=== PATIENT | female | born 1955 | race Two or more races ===

== ENCOUNTER → 2023-02-03 10:41 | Outpatient (BNVA) | payer OTHER, SELFPAY | PROVIDERS: PCP Registered Nurse; Visit Provider Internal Medicine | DX: M54.16 Radiculopathy, lumbar region (principal); M25.562 Pain in left knee; G89.29 Other chronic pain | CPT/HCPCS: 20610; 99202; J2795; J3301 ==

== ENCOUNTER 2023-02-10 11:22 | Outpatient (REF) | payer OTHER, SELFPAY ==
--- NOTE | ~2023-02-10 | XR_ITS ---
EXAMINATION: XR KNEE AP STANDING CLINICAL INFORMATION: Osteoarthritis of the knee. COMPARISON: None available. TECHNIQUE: AP bilateral standing view of the knees was obtained. FINDINGS: No acute fracture or malalignment in this limited single view of the knees. Severe joint space narrowing with subcortical sclerosis of the medial compartment of the left knee. No significant soft tissue abnormality. XR/XR knee standing BI IMPRESSION: Severe degenerative osteoarthritis of the medial compartment of the left knee.
== END 2023-02-10 11:23 | disposition home or self-care (01) ==
LOC: HO.XRAY 11:22
PROVIDERS: PCP Registered Nurse; Visit Provider Internal Medicine
DX: M17.0 Bilateral primary osteoarthritis of knee (principal)
CPT/HCPCS: 73565

== ENCOUNTER 2023-02-12 08:22 | Outpatient (REF) | payer OTHER, SELFPAY ==
--- NOTE | ~2023-02-12 | XR_ITS ---
EXAMINATION: XR KNEE, LEFT CLINICAL INFORMATION: Pain left knee. COMPARISON: None available. TECHNIQUE: 4 views of the left knee. FINDINGS: There is loss of patellofemoral joint space with moderate periarticular spurring. Mild suprapatellar joint effusion seen. There are no loose bodies, acute fracture or dislocation. There is mild anterior knee soft tissue swelling. XR/XR knee LT 2V IMPRESSION: Degenerative arthritic changes patellofemoral compartment with mild suprapatellar joint effusion. No visible acute fracture or dislocation seen. Mild soft tissue swelling anterior knee.
== END 2023-02-12 08:23 | disposition home or self-care (01) ==
LOC: HO.HOSX 08:22
PROVIDERS: Visit Provider Physician Assistant
DX: M17.12 Unilateral primary osteoarthritis, left knee (principal); Z79.899 Other long term (current) drug therapy
CPT/HCPCS: 73560; 99202

== ENCOUNTER → 2023-02-20 10:53 | Outpatient (BNVA) | payer OTHER, SELFPAY | PROVIDERS: PCP Registered Nurse; Visit Provider Orthopaedic Surgery | DX: M54.16 Radiculopathy, lumbar region (principal); M17.12 Unilateral primary osteoarthritis, left knee | CPT/HCPCS: 99212 ==

== ENCOUNTER 2023-02-28 11:50 | Outpatient (REF) | payer OTHER, SELFPAY ==
--- NOTE | ~2023-02-28 | XR_ITS ---
EXAMINATION: XR LUMBOSACRAL SPINE WITH OBLIQUES CLINICAL INFORMATION: Lumbar back pain. COMPARISON: None available. TECHNIQUE: AP, both oblique, and lateral views of the lumbar spine. Lateral view of the lumbosacral junction. FINDINGS: There is bony demineralization. There is a mild to moderate lower lumbar dextroscoliosis. There is a mild L1 anterior wedge compression fracture. Vertebral body heights are otherwise unremarkable. There is vacuum disc phenomenon extending from T9-T10 through T11-T12. At L1-L2, there is marked disc space narrowing, vacuum disc phenomenon and a 4 mm retrolisthesis. At L3-L4, and marked disc disease, vacuum disc phenomenon. At L4-L5, there is a 6 mm retrolisthesis. At L5-S1, is moderate disc space narrowing and a 4 mm retrolisthesis. There is been a prior left lower posterior fusion at L5-S1, with intact posterior fixator tammy, pedicular screws and disc spacers. The posterior elements are intact. There are pelvic phleboliths. There are aortoiliac atherosclerotic calcifications. XR/XR lumbar spine 4V min IMPRESSION: 1. There is intact orthopedic hardware status-post L4-L5 posterior fusion. 2. There is multi-level thoracolumbar degenerative disease and spondylosis. 3. There is an age-indeterminate mild L1 anterior wedge compression fracture. 4. There is a mild to moderate lower lumbar dextroscoliosis.
== END 2023-02-28 11:51 | disposition home or self-care (01) ==
LOC: HO.XRAY 11:50
PROVIDERS: Visit Provider Registered Nurse
DX: Z87.42 Personal history of other diseases of the female genital tract (principal)
CPT/HCPCS: 72110

== ENCOUNTER 2023-03-07 15:23 | Outpatient (REF) | payer OTHER, SELFPAY ==
--- NOTE | ~2023-03-07 | US_ITS ---
EXAMINATION: US PELVIS CLINICAL INFORMATION: History ovarian cysts. Age 67. COMPARISON: None available. TECHNIQUE: Ultrasound of the pelvis is performed using both transabdominal and transvaginal transducers along with Doppler. Transvaginal imaging is performed due to inadequate visualization transabdominally. FINDINGS: Uterus: The uterus is anteverted and measures 5.4 x 3.1 x 4.0 cm. Volume 35 mL. The double wall endometrial thickness is normal, under 3 mm. The uterus is smooth in contour and has normal myometrial echogenicity. There are some incidental arcuate vessel calcifications. No visible fibroid. There are some small nabothian cysts in the cervix. Adnexa: Both ovaries are visualized and normal in size.. There is no pelvic ascites or fluid collection. Right ovary measures 2.0 x 1.5 x 1.0 cm. Volume 1.6 mL. There is no cystic or solid right adnexal mass. There is a incidental peripheral calcification within the ovary without associated mass. Finding of doubtful significance. Left ovary measures 1.8 x 1.1 x 1.0 cm. Volume 1.0 mL. There is no cystic or solid left adnexal mass. There is a coarse calcification in the ovary measuring 5 x 4 mm with posterior acoustic shadowing. No associated mass. Finding of doubtful significance. US/US pelvic and transvaginal IMPRESSION: Uterus: -No visible fibroid. Normal endometrial double wall thickness under 3 mm. Adnexa: -Bilateral ovarian calcification of doubtful significance. No associated cystic or solid adnexal mass or ascites. Ovaries normal in size. Suggest follow-up transvaginal ultrasound in 6 months.
== END 2023-03-07 15:24 | disposition home or self-care (01) ==
LOC: HO.US 15:23
PROVIDERS: PCP Registered Nurse; Visit Provider Registered Nurse
DX: Z87.42 Personal history of other diseases of the female genital tract (principal)
CPT/HCPCS: 76830; 76856

== ENCOUNTER 2023-03-11 07:02 | Emergency (ER) | payer OTHER, SELFPAY ==
[2023-03-11 07:41] VITALS: BP 127/74; PULSE 74; RESP 18; TEMP 37.2; O2SAT 99; BMI 30.2
--- NOTE | 2023-03-11 07:49 | ED_ITS ---
HPI - Abdominal Pain General Chief Complaint: Abdominal Pain Stated Complaint: L flank pain Time Seen by Provider: 03/11/23 07:48 Source: patient Mode of arrival: ambulatory Limitations: no limitations History of Present Illness HPI narrative: flank pain going to the front of her abdomen, started last Friday after a vaginal ultrasound. Patient has a dermoid cyst on the left ovary. MD elicited complaint: flank pain Severity: mild Quality: sharp Associated symptoms: denies other symptoms Related Data Home Medications Medication Instructions Recorded Confirmed amitriptyline 50 mg tablet 50 mg PO BEDTIME 02/03/23 02/12/23 atorvastatin 20 mg tablet 20 mg PO DAILY 02/03/23 02/12/23 diclofenac potassium 50 mg tablet 50 mg PO BID PRN 02/03/23 02/12/23 furosemide 20 mg tablet 20 mg PO DAILY 02/03/23 02/12/23 gabapentin 400 mg capsule 400 mg PO BID 02/03/23 02/12/23 glipizide 2.5 mg tablet, extended 2.5 mg PO DAILY 02/03/23 02/12/23 release 24 hr lisinopril 2.5 mg tablet 2.5 mg PO DAILY 02/03/23 02/12/23 lorazepam 2 mg tablet 2 mg PO BID 02/03/23 02/12/23 metformin 850 mg tablet 850 mg PO BID 02/03/23 02/12/23 metoprolol tartrate 50 mg tablet 50 mg PO BID 02/03/23 02/12/23 nicotine 10 mg inhalation 1 inh inhalation TID PRN 02/03/23 02/12/23 cartridge (Nicotrol) sertraline 100 mg tablet 100 mg PO DAILY 02/03/23 02/12/23 venlafaxine 150 mg 150 mg PO DAILY 02/03/23 02/12/23 capsule,extended release 24 hr Previous Rx's Medication Instructions Recorded naproxen 500 mg tablet (Naprosyn) 500 mg PO BID #20 tabs 03/11/23 Allergies Allergy/AdvReac Type Severity Reaction Status Date / Time No Known Allergies Allergy Verified 03/11/23 07:48 Review of Systems Review of Systems Yes all other systems are reviewed and are negative Musculoskeletal: Reports back pain PMFSH Past Medical History Medical History Chronic pain of left knee Lumbar disc disease Primary hypertension Recurrent major depression in partial remission Tobacco use Type 2 diabetes mellitus without complication, with long-term current use of ins ulin Surgical History H/O lumbar discectomy H/O tubal ligation Social History Social History Alcohol intake: never Smoked in Last 30 Days: Yes Use of substances other than those prescribed or required for medical reasons: No Advance Directives: Yes Advance Directives Information Provided: Yes Advance Directives on File: No Physical Exam ED Vital Signs: Vital Signs - 24 hr 03/11/23 07:41 03/11/23 09:08 Temperature 98.9 F Pulse Rate 74 63 Respiratory Rate 18 18 Blood Pressure 127/74 131/70 Pulse Oximetry 99 100 Oxygen Delivery Method Room Air Room Air BMI result Body Mass Index 30.2 Const General: healthy appearing Nutritional Appearance: average body habitus Orientation/consciousness: oriented to person and patient oriented x3 Limitations: no limitations HENMT Head: Yes normal to inspection Ears: external ears normal General nose exam: Normal external nose present Mouth: Normal oral and palatal mucosa present and oropharynx normal Throat: Yes posterior oropharynx normal Eyes General: appearance normal, both eyes and all related structures Neck Neck: Yes normal visual inspection Chest Chest palpation & inspection: normal inspection of the chest Resp Auscultation: clear to auscultation bilaterally Cardio Jugular venous distension: no JVD Rate: regular rate Rhythm: regular rhythm Heart sounds: S1 normal heart sound present and S2 normal heart sound present GI Inspection: Yes normal to inspection Palpation (GI): Soft to palpation, nontender and No hepatosplenomegaly present Auscultation: normal bowel sounds Back/Spine/Pelvis Other: mild left CVAT abdomen soft Skin General skin exam: no rashes or lesions noted Neuro General: oriented to person and patient oriented x3 Cranial nerves: Yes CN's II-XII intact bilaterally Motor exam (neuro): 5/5 motor strength present throughout Extrem General: Yes normal to inspection Psych Appearance: grossly normal Course Reevaluation(s) Reevaluation #1: patients pain is improved, no cyst on the TV ultrasound, will dc on nsaids Time: 10:56 Medical Decision Making Differential Diagnosis Differential Diagnoses: The differential diagnosis associated with the presentation includes (ovarian cyst, UTI, renal colic, fibroid uterus were all considered) Lab Data MDM Lab Attestation statement: I reviewed the patient's lab results. 03/11/23 08:09 03/11/23 08:09 Labs: Lab Results 03/11/23 03/11/23 03/11/23 Range/Units 08:03 08:09 08:09 WBC 9.3 (4.8-10.8) X10*3/uL RBC 3.87 L (4.20-5.50) X10*6/uL Hgb 12.0 (12.0-16.0) g/dl Hct 34.6 L (37.0-47.0) % MCV 89.4 (80.0-98.0) fL MCH 31.0 (27.0-33.0) pg MCHC 34.7 (31.0-35.0) g/dl RDW 12.0 (11.0-16.0) % Plt Count 386 (160-400) X10*3/uL MPV 9.3 L (9.4-12.3) fL Immature Gran % (Auto) 0.3 (0.0-0.4) % Neut % (Auto) 73.9 H (45-73) % Lymph % (Auto) 14.7 L (20-40) % Armstrong % (Auto) 6.4 (2-11) % Eos % (Auto) 4.2 H (0-4) % Baso % (Auto) 0.5 (0-2) % Lymph # (Auto) 1.4 (1.2-4.9) X10*3/uL Armstrong # (Auto) 0.6 (0.1-1.2) X10*3/uL Eos # (Auto) 0.4 (0.0-0.4) X10*3/uL Baso # (Auto) 0.1 (0.0-0.2) X10*3/uL Abs Immat Gran (auto) 0.03 (0.00-0.03) X10*3/uL Absolute Neuts (auto) 6.9 (2.0-8.3) x10*3/uL Absolute Nucleated RBC 0.000 (0.0-0.012) X10*3/uL Nucleated RBC % (auto) 0.0 (0.0-0.2) /100WBC Sodium 130 L (135-145) mmol/L Potassium 5.1 (3.3-5.1) mmol/L Chloride 96 (96-108) mmol/L Carbon Dioxide 25 (22-29) mmol/L Anion Gap 14 (12-20) BUN 13 (9-16) mg/dL Creatinine 1.07 (0.5-1.4) mg/dL Estim Creat Clear Calc 38.5 Estimated GFR 51 Random Glucose 121 H (60-115) mg/dL Calcium 9.2 (8.4-10.2) mg/dL Urine Color Yellow Urine Appearance Clear Urine pH 6.5 (5.0-9.0) Ur Specific [place] 1.010 (1.005-1.025) Urine Protein Negative (Neg-Trace) mg/dL Urine Glucose (UA) Negative (Negative) mg/dL Urine Ketones Negative (Negative) mg/dL Urine Blood Trace H (Negative) Urine Nitrite Negative (Negative) Ur Leukocyte Esterase Negative (Negative) Urine RBC 3-5 H (0-2) /HPF Urine WBC 0-5 (0-5) /HPF Ur Squamous Epith Cells 0-2 (0-2) /HPF Urine Bacteria None Seen (None Seen) Hyaline Casts 0-2 (0-2) /LPF Radiology Impression Discussion of test interpretation with radiology: I have reviewed the radiologist's reading. (of the old ultrasound on 03/07) Medications Administered Discontinued Medications Generic Name Dose Route Start Last Admin Trade Name Kennedyq PRN Reason Stop Dose Admin Ketorolac Tromethamine 60 mg 03/11/23 07:52 03/11/23 08:13 Ketorolac Tromethamine 60 Mg/2 Ml Vial IM 03/11/23 07:53 60 mg ONCE ONE Administration Discharge Plan Discharge Clinical Impression: Acute pelvic pain Patient Disposition: Home, Self-Care Instructions: Pelvic Pain in Women (ED), Pelvic Pain (ED) Prescriptions: New naproxen [Naprosyn] 500 mg tablet 500 mg PO BID Qty: 20 0RF No Action lorazepam 2 mg tablet 2 mg PO BID amitriptyline 50 mg tablet 50 mg PO BEDTIME sertraline 100 mg tablet 100 mg PO DAILY lisinopril 2.5 mg tablet 2.5 mg PO DAILY furosemide 20 mg tablet 20 mg PO DAILY metformin 850 mg tablet 850 mg PO BID atorvastatin 20 mg tablet 20 mg PO DAILY Nicotrol 10 mg cartridge 1 inh inhalation TID PRN gabapentin 400 mg capsule 400 mg PO BID venlafaxine 150 mg capsule,extended release 24hr 150 mg PO DAILY metoprolol tartrate 50 mg tablet 50 mg PO BID glipizide 2.5 mg tablet extended release 24hr 2.5 mg PO DAILY diclofenac potassium 50 mg tablet 50 mg PO BID PRN Referrals: Marisa Massey, [facility] [Primary Care Provider] - 3 days
--- NOTE | 2023-03-11 07:57 | PC.NURSE ---
Pt found on stretcher with airway open and patent, no obvious signs of distress, no difficulty breathing. certified court interpreter at bedside. Pt a&ox4, skin normal for ethnicity, warm, and dry. Lung sounds clr and equal bilaterally. Heart sounds normal. Bowel sounds present all valdovinos, abd soft, pt reports tenderness. No edema noted. Pt complaining of 8/10 left sided back pain that wraps around and goes to her front. Pt reports that she had an ultrasound on friday, suspected ovarian cist, but has not received results back yet.
[2023-03-11 08:12] LABS: Appearance Urine Clear; Color Urine Yellow; Glucose Urine UA Negative (Negative); Leukocyte Esterase Urine Negative (Negative); Nitrite Urine Negative (Negative); PH 6.5 (5.0-9.0); UMIC TRIGGER UACC YES; Urine Blood Trace (Negative); Urine Ketones Negative (Negative); Urine Protein Negative (Neg-Trace)
[2023-03-11 08:13] LABS: MANUAL DIFF FLAG NO
[2023-03-11] MEDS: Ketorolac Tromethamine 60 MG/2 ML VIAL IM (08:13)
[2023-03-11 08:15] LABS: Basophils Absolute Auto 0.1 X10*3/uL (0.0-0.2); Basophils Percent Auto 0.5 % (0-2); Eosinophils Absolute Auto 0.4 X10*3/uL (0.0-0.4); Eosinophils Percent Auto 4.2 % (0-4); Hematocrit 34.6 % (37.0-47.0); Imm Gran Abs Auto 0.03 X10*3/uL (0.00-0.03); Imm Gran Pct Auto 0.3 % (0.0-0.4); Lymphocytes Absolute Auto 1.4 X10*3/uL (1.2-4.9); Lymphocytes Percent Auto 14.7 % (20-40); Mean Corpuscular HGB Conc 34.7 g/dl (31.0-35.0); Mean Corpuscular Volume 89.4 fL (80.0-98.0); Mean Platelet Volume 9.3 fL (9.4-12.3); Monocytes Absolute Auto 0.6 X10*3/uL (0.1-1.2); Monocytes Percent Auto 6.4 % (2-11); Neutrophils Absolute Auto 6.9 x10*3/uL (2.0-8.3); Neutrophils Percent Auto 73.9 % (45-73); Platelet Count 386 X10*3/uL (160-400); Red Blood Count 3.87 X10*6/uL (4.20-5.50); White Blood Count 9.3 X10*3/uL (4.8-10.8)
[2023-03-11 08:17] LABS: Bacteria Urine None Seen (None Seen); Hyaline Casts Urine 0-2 /LPF (0-2); Squamous Epithelial Cell Urine 0-2 /HPF (0-2); WBC Urine 0-5 /HPF (0-5)
[2023-03-11 08:36] LABS: Anion Gap 14 (12-20); Blood Urea Nitrogen 13 mg/dL (9-16); Calcium 9.2 mg/dL (8.4-10.2); Carbon Dioxide 25 mmol/L (22-29); Chloride 96 mmol/L (96-108); Creatinine Clr Calc Pharmacy 38.5; Estimated Glomerular Filt Rate 51; Glucose Random 121 mg/dL (60-115); Potassium 5.1 mmol/L (3.3-5.1); Sodium 130 mmol/L (135-145)
[2023-03-11 09:08] VITALS: BP 131/70; PULSE 63; RESP 18; O2SAT 100
[2023-03-11 11:28] VITALS: BP 146/74; PULSE 64; RESP 14; TEMP 37.2; O2SAT 98
== END 2023-03-11 11:38 | disposition home or self-care (01) ==
PROVIDERS: Emergency Provider Emergency Medicine; PCP Registered Nurse
DX: R10.2 Pelvic and perineal pain (principal); Z79.899 Other long term (current) drug therapy
CPT/HCPCS: 36415; 80048; 81001; 85025; 99284; J1885

== ENCOUNTER → 2023-05-19 10:43 | Outpatient (BNVA) | payer OTHER, SELFPAY | PROVIDERS: PCP Registered Nurse; Visit Provider Orthopaedic Surgery | DX: M17.12 Unilateral primary osteoarthritis, left knee (principal); M54.16 Radiculopathy, lumbar region; E11.9 Type 2 diabetes mellitus without complications; Z79.4 Long term (current) use of insulin | CPT/HCPCS: 20610; 99212; J1100 ==

== ENCOUNTER 2023-07-14 08:10 | Outpatient (REF) | payer OTHER, SELFPAY ==
[2023-07-14 12:46] LABS: Anion Gap 13 (12-20); Blood Urea Nitrogen 12 mg/dL (9-16); C Reactive Protein 0.16 mg/dL (< or = 0.50); Calcium 9.7 mg/dL (8.4-10.2); Carbon Dioxide 26 mmol/L (22-29); Chloride 100 mmol/L (96-108); Estimated Glomerular Filt Rate > 60; Glucose Random 96 mg/dL (60-115); Potassium 4.9 mmol/L (3.3-5.1); Sodium 134 mmol/L (135-145)
[2023-07-14 13:09] LABS: Erythrocyte Sedimentation Rate 21 MM/HR (0-20)
[2023-07-18 13:18] LABS: Anti Nuclear Antibody Screen NEGATIVE (NEGATIVE)
== END 2023-07-14 08:11 | disposition home or self-care (01) ==
LOC: HO.HHCL 08:10
PROVIDERS: Visit Provider Registered Nurse
DX: M25.50 Pain in unspecified joint (principal); E11.9 Type 2 diabetes mellitus without complications
CPT/HCPCS: 36415; 80048; 85652; 86038; 86140

== ENCOUNTER 2023-07-28 09:39 | Outpatient (AMB) | payer OTHER, SELFPAY ==
--- NOTE | 2023-07-28 09:41 | MHC.OFFVIS ---
Intake Vital Signs 07/28/23 09:42 BP 139/65 Blood Pressure Location Lt brachial Position Sitting Respiration 14 Pulse 81 Pulse Source Pulse Oximeter Intake Visit Reasons: Increasing Pain/ MRI Results (MRI on 06/30/23) Allergies No Known Allergies Allergy (Verified 07/28/23 09:42) Medication List - Last Reconciled 07/28/23 by Angi Willoughby LPN amitriptyline 50 mg PO BEDTIME atorvastatin 20 mg PO DAILY diclofenac potassium 50 mg PO BID PRN furosemide 20 mg PO DAILY gabapentin 400 mg PO BID glipizide ER 2.5 mg PO DAILY lisinopril 2.5 mg PO DAILY lorazepam 2 mg PO BID metformin 850 mg PO BID metoprolol tartrate 50 mg PO BID naproxen (Naprosyn) 500 mg PO BID nicotine (Nicotrol) 1 inh inhalation TID PRN sertraline 100 mg PO DAILY venlafaxine ER 150 mg PO DAILY HPI Increasing Pain/ MRI Results (MRI on 06/30/23) HPI Details 67-year-old female is presenting today for an increasing pain and review of MRI result. The patient reports 80% relief following the left knee Kenalog injection with us for about three months. The patient reports no relief following the left knee intra-articular dexamethasone injection that she received last month from Orthopedics. The patient has a history of left-sided lumbar spine surgery about three and a half years ago in [place]. She reports no significant improvement in her knee pain. Per the orthopedic surgeon, she is not a good candidate for knee surgery due to back issues. She is amenable to receive a repeat left knee steroid injection. She reports shoulder and neck pain secondary to her back pain. Past procedure: 02/03/23: Left knee intra-articular corticosteroid injection: 80% relief. [facility] Medical History (Updated 07/28/23 @ 10:15 by Al Ronquillo MD) Chronic pain of left knee Lumbar disc disease Primary hypertension Recurrent major depression in partial remission Tobacco use Type 2 diabetes mellitus without complication, with long-term current use of insulin Surgical History H/O lumbar discectomy H/O tubal ligation Social History Alcohol intake: never Review of Systems Const All systems reviewed & are unremarkable except as noted in HPI and below Physical Exam Vital Signs: Last Vital Signs Pulse 81 07/28/23 09:42 Resp 14 07/28/23 09:42 BP 139/65 07/28/23 09:42 General: Appears afebrile. Alert and oriented. Mood and affect appropriate. Follows and participates in conversation appropriately. Respiratory effort is unlabored. Able to transition from sit to stand unassisted. Ambulates with bilaterally normal heel strike and toe off. Office Procedures Joint Injection/Drain Joint Injection/Drain Details: Left knee steroid injection Primary Site: left knee Prep: site was prepped using sterile technique Injected: 40 mg of, Kenalog, with 3 mL of and 1% plain lidocaine Approach Used: anteromedial Procedure: The patient tolerated the procedure well Coding Details: An ultrasound image of the injection was taken and stored in the permanent record. 21449 - Large joint Procedure code (CPT) selection complete Results Reviewed Results Reviewed: 06/27/23: MR LUMBAR SPINE WITHOUT AND WITH CONTRAST. 02/12/23: XR KNEE, LEFT FINDINGS: There is loss of patellofemoral joint space with moderate periarticular spurring. Mild suprapatellar joint effusion seen. There are no loose bodies, acute fracture or dislocation. There is mild anterior knee soft tissue swelling. IMPRESSION: Degenerative arthritic changes patellofemoral compartment with mild suprapatellar joint effusion. No visible acute fracture or dislocation seen. Mild soft tissue swelling anterior knee. 02/28/23: XR LUMBOSACRAL SPINE WITH OBLIQUES FINDINGS: There is bony demineralization. There is a mild to moderate lower lumbar dextroscoliosis. There is a mild L1 anterior wedge compression fracture. Vertebral body heights are otherwise unremarkable. There is vacuum disc phenomenon extending from T9-T10 through T11-T12. At L1-L2, there is marked disc space narrowing, vacuum disc phenomenon and a 4 mm retrolisthesis. At L3-L4, and marked disc disease, vacuum disc phenomenon. At L4-L5, there is a 6 mm retrolisthesis. At L5-S1, is moderate disc space narrowing and a 4 mm retrolisthesis. There is been a prior left lower posterior fusion at L5-S1, with intact posterior fixator tammy, pedicular screws and disc spacers. The posterior elements are intact. There are pelvic phleboliths. There are aortoiliac atherosclerotic calcifications. IMPRESSION: 1. There is intact orthopedic hardware status-post L4-L5 posterior fusion. 2. There is multi-level thoracolumbar degenerative disease and spondylosis. 3. There is an age-indeterminate mild L1 anterior wedge compression fracture. 4. There is a mild to moderate lower lumbar dextroscoliosis. Assessment & Plan Assessment & Plan (1) Lumbar spinal stenosis: Code(s): M48.061 - Spinal stenosis, lumbar region without neurogenic claudication Plan Discussed steroid injection vs. gel injection as possible treatment options for knee pain going forward to mitigate her pain well she undergoes evaluation and management of her spine condition. Patient is status post-left Kenalog knee injection in the office today. The patient tolerated the procedure well and was discharged home in stable condition with discharge instructions. ? Discussed surgical interventions as a possible treatment option for her back pain. A referral was provided to neurosurgery. Scribed for Dr. Ronquillo by Mina Coulter, lpn or medical assistant, on 07/28/2023. I, Dr. Ronquillo, have personally reviewed and agree with the information entered by the scribe. Orders: Referrals Neurosurgery Referral M48.061 - Spinal stenosis, lumbar region without neurogenic claudication Coding Level of Care Code Est Pt Level 4 (94978) Diagnoses Lumbar spinal stenosis M48.061 CPT Codes Coding - 67565 Large joint: 04951 - Large joint ([id number])
[2023-07-28 09:42] VITALS: BP 139/65; PULSE 81; RESP 14
== END 2023-07-28 10:42 | disposition home or self-care (01) ==
PROVIDERS: PCP Registered Nurse; Visit Provider Internal Medicine
DX: M48.061 Spinal stenosis, lumbar region without neurogenic claudication (principal); M25.562 Pain in left knee
CPT/HCPCS: 20610; 99214

== ENCOUNTER → 2023-07-28 09:39 | Outpatient (BNVA) | payer OTHER, SELFPAY | PROVIDERS: PCP Registered Nurse; Visit Provider Internal Medicine | DX: M48.061 Spinal stenosis, lumbar region without neurogenic claudication (principal); M25.562 Pain in left knee | CPT/HCPCS: 20610; 99212; J3301 ==

== ENCOUNTER 2023-08-27 12:49 | Outpatient (AMB) | payer OTHER, SELFPAY ==
--- NOTE | 2023-08-27 13:19 | HO.SPINEOV ---
Intake Intake Visit Reasons: spinal stenosis Intake Note: Mrs. Yunior Valdivia is here today c/o low back and left leg pain. MRI done @ [facility]/brought disc. Shift Boss Required: Yes Allergies No Known Allergies Allergy (Verified 07/28/23 09:42) Assessment & Plan Assessment & Plan (1) Lumbar spinal stenosis: Code(s): M48.061 - Spinal stenosis, lumbar region without neurogenic claudication (2) Adjacent segment disease of lumbar spine with history of fusion procedure: Code(s): M51.36 - Other intervertebral disc degeneration, lumbar region; Z98.1 - Arthrodesis status Plan Dear colleague Thank you for referring Liz Valdivia to the office today with a chief complaint of back pain predominantly radiating to her left leg. HPI: This 67-year-old [place] female recently came to the [facility]. She had a an L4-5 lumbar fusion done in [place] 4 years ago. She states that she has progressive low back pain radiating down both legs, with the left side is more affected than the right side. The pain radiates to the inside of her left ankle. The pain increases with walking but improves with standing or sitting down. The pain never completely resolves. She denies osteoporosis or osteopenia. The pain is significantly interfering with her daily activities. She was evaluated by our pain management team and referred for a surgical consultation. The following conservative treatment options were tried without success antiinflammatories, tylenol, physician guided home exercise plan, cortisone shots PMH: Hypertension, diabetes and anxiety Social history: She vapes Medications: Amitriptyline, at [facility], diclofenac, furosemide, gabapentin, glipizide, lisinopril, lorazepam, metformin, metoprolol, sertraline, venlafaxine Allergies: NKDA Physical Exam: Pleasant female. On inspection there is a well-healed midline incision. There is mild pain on palpation across the lumbar spine. No motor sensory deficits. Radiological Studies: MRI done at [facility] on 06/27/2023 shows status post L4-5 fusion with unilateral instrumentation. More importantly, there is adjacent degenerative disc disease L3-4 with an asymmetrically collapse causing lumbar degenerative scoliosis and severe left L4 foraminal stenosis and central spinal stenosis. Impression/Plan: This patient is most likely suffering from lumbar spinal stenosis due to adjacent degenerative disc disease. However, I would like to rule out a vascular cause as she states that standing also improves her symptoms which is indicative of vascular claudication. I will refer for a arterial duplex and will follow up for a further plan. We briefly discussed a minimally invasive correction of the adjacent L3-4 level. Thank you for allowing me to participate in your patients care. total time spent was 50 minutes in counseling ,coordination of plan, personal review of imaging, and subsequent plan Ben Melgoza MD, PhD Spine Fellowship Trained Neurosurgeon Director, [facility] Orders: Orders US arterial duplex LE LT Today M48.061 - Spinal stenosis, lumbar region without neurogenic claudication Coding Level of Care Code New Pt Level 4 (40185) Diagnoses Lumbar spinal stenosis M48.061 Adjacent segment disease of lumbar spine with history of fusion procedure M51.36; Z98.1
== END 2023-08-27 13:29 | disposition home or self-care (01) ==
PROVIDERS: PCP Registered Nurse; Referring Provider Internal Medicine; Visit Provider Neurological Surgery
DX: M48.061 Spinal stenosis, lumbar region without neurogenic claudication (principal); M51.36 Other intervertebral disc degeneration, lumbar region; Z98.1 Arthrodesis status
CPT/HCPCS: 99204

== ENCOUNTER → 2023-08-27 12:49 | Outpatient (BNVA) | payer OTHER, SELFPAY | PROVIDERS: PCP Registered Nurse; Visit Provider Neurological Surgery ==

== ENCOUNTER 2023-09-23 12:47 | Outpatient (REF) | payer OTHER, SELFPAY ==
--- NOTE | ~2023-09-23 | US_ITS ---
EXAMINATION: Noninvasive assessment of the left lower extremity with ARTERIAL DUPLEX CLINICAL INFORMATION: Left lower extremity pain/claudication. History of spinal stenosis TECHNIQUE: Duplex Doppler techniques with waveform analysis and measurement of velocities in the left common femoral, profunda femoris, superficial femoral, popliteal and tibial arteries were performed. COMPARISON: None FINDINGS: DIRECT DUPLEX DOPPLER FINDINGS: LEFT LEG: Common femoral artery: 128 cm/s, phasicity: Biphasic. Mild calcified plaque Profunda femoris artery: 58.8 cm/s, phasicity: Biphasic Superficial femoral artery (proximal): 84.0 cm/s, phasicity: Triphasic Superficial femoral artery (mid): 358 cm/s, phasicity: Triphasic Superficial femoral artery (distal): 102 cm/s, phasicity: Biphasic Popliteal artery: 69.4 cm/s, phasicity: Triphasic Posterior tibial artery: 70.2 cm/s, phasicity: Triphasic Peroneal artery: 49.0 cm/s, phasicity: Biphasic Anterior tibial artery: 44.2 cm/s, phasicity: Biphasic Dorsalis pedis artery: 58.3 cm/s, phasicity: Biphasic US/US arterial duplex LE LT IMPRESSION: Elevated velocity seen in the mid superficial femoral artery which could represent underlying moderate stenosis. Velocities and waveforms throughout the remaining arterial vessels throughout the left lower extremity were otherwise within normal limits. Findings could be artifactual in nature. Further evaluation with CTA or MRA may be useful.
== END 2023-09-23 12:48 | disposition home or self-care (01) ==
LOC: HO.US 12:47
PROVIDERS: PCP Registered Nurse; Visit Provider Neurological Surgery
DX: M79.605 Pain in left leg (principal); M48.061 Spinal stenosis, lumbar region without neurogenic claudication
CPT/HCPCS: 93926